=== PATIENT | male | born 1945 | race Caucasian/White ===

== ENCOUNTER → 2017-07-03 | Outpatient (CLI) | payer MEDICARE | LOC: COL.RAD 10:25 | DX: M48.02 Spinal stenosis, cervical region (principal); S13.140A Subluxation of C3/C4 cervical vertebrae, initial encounter; M46.82 Other specified inflammatory spondylopathies, cervical region ==

== ENCOUNTER → 2020-01-17 | Outpatient (CLI) | payer MEDICARE ==
[~2020-01-17] MED LIST: HYGROTON 2525 MG/TAB; LIPITOR 10MG10 MG PO; NORCO 325 MG-7.1 TAB PO; TORADOL 10MG TA10 MG PO
== END ==
LOC: COL.RAD 13:48
DX: N28.1 Cyst of kidney, acquired (principal); N28.9 Disorder of kidney and ureter, unspecified; N40.0 Benign prostatic hyperplasia without lower urinary tract symptoms

== ENCOUNTER 2022-09-12 23:43 | Emergency (ER) | payer MEDICARE ==
[~2022-09-12] VITALS: Ht 180.3 cm; Wt 76.4 kg
[2022-09-12 23:49] VITALS: TEMP 97.9
[2022-09-13] MEDS ORDERED: PERCOCET 325 MG1 TA2 PO (01:38)
[2022-09-13 01:56] VITALS: BP 136/71; PULSE 80
== END 2022-09-13 02:00 | disposition home or self-care (01) ==
LOC: COL.ER 23:43
DX: S22.31XA Fracture of one rib, right side, initial encounter for closed fracture (principal); W19.XXXA Unspecified fall, initial encounter; X50.1XXA Overexertion from prolonged static or awkward postures, initial encounter

== ENCOUNTER → 2023-11-23 | Outpatient (CLI) | payer MEDICARE ==
[~2023-11-23] MED LIST changes: +ASPIRIN E.C. 8181 MG PO; +COMPLETE MULTI1 TAB PO; +CORDARONE200 MG/TAB PO; +ELIQUIS 5MG PO; +Levalbuterol Neb Soln 1.25 MG/3 ML UD IH ONE; +MOTRIN 200200 MG/TAB PO; +NITROSTAT0.4 MG/TAB SL; +PAXLOVID CO-PA1 EACH PO; +PERCOCET 325 MG1 TA2 PO
== END ==
LOC: COL.CARD 11:40
DX: R06.02 Shortness of breath (principal)

== ENCOUNTER → 2023-11-30 | Outpatient (CLI) | payer MEDICARE ==
[~2023-11-30] MED LIST changes: +Albuterol 0.083% Neb Soln 2.5 MG/3 ML UD IH ONE; -Levalbuterol Neb Soln 1.25 MG/3 ML UD IH ONE; +Methacholine Vial A (Clear Label Base-Cntrl) IH ONE; +Methacholine Vial B (Red Label) 0.0625 MG/ML 3 ML VIAL.NEB IH ONE; +Methacholine Vial C (Orange Label) 0.25 MG/ML 3 ML VIAL.NEB IH ONE; +Methacholine Vial D (Yellow Label) 1 MG/ML 3 ML VIAL.NEB IH ONE; +Methacholine Vial E (Green Label) 4 MG/ML 3 ML VIAL.NEB IH ONE; +Methacholine Vial F (Blue Label) 16 MG/ML 3 ML VIAL.NEB IH ONE
== END ==
LOC: COL.PUL 10:02
DX: R06.02 Shortness of breath (principal)
CPT/HCPCS: J7674